=== PATIENT | female | born 1950 | race Caucasian/White ===

== ENCOUNTER 2016-11-06 07:00 | Emergency (ER) | payer OTHER ==
[~2016-11-06] VITALS: Ht 165.1 cm; Wt 88.0 kg
[~2016-11-06 07:00] MED LIST: ASPI81TA28 PO; ATV5X PO; CHOL100010 PO; COEN1CAP17 PO; CYAN10005 PO; FLNIN/ NAE; INSUINJ14 SC; INSUINJ4 SQ; KRIL1000 PO; LEVO100T7 PO; LPT40 PO; LSN5 PO; MAGN1CAP4 PO; METF-384 PO; METO25TA56 PO; PROB1TAB16 PO; ZTA10 PO
[2016-11-06 07:04] VITALS: TEMP 36.4; Ht 165.1 cm; Wt 88.0 kg
[2016-11-06 07:37] LABS: BASO % 1.2 %; BASO ABS # 0.07 K/uL (0-0.2); COMPLETE YES; HEMATOCRIT 38.4 % (37-47); IG% 0.3 %; LYMPH % 33.8 %; LYMPH ABS # 2.04 K/uL (1.2-3.4); MEAN CELL VOLUME 89.7 fL (80-100); MEAN CORPUSCULAR HEMOGLOBIN 30.6 pg (25-34); MEAN CORPUSCULAR HGB CONC 34.1 g/dl (32-36); MEAN PLATELET VOLUME 9.5 fL (7.4-10.4); MONO % 7.5 %; NEUT % 50.2 %; PLATELET COUNT 212 K/uL (130-400); RED BLOOD COUNT 4.28 M/uL (4.2-5.4); WHITE BLOOD COUNT 6.03 K/uL (4.8-10.8)
[2016-11-06 07:55] LABS: THYROID STIMULATING HORMONE 0.792 uIu/ml (0.300-4.500)
[2016-11-06 08:39] VITALS: BP 136/75; PULSE 61; O2SAT 93
--- NOTE | 2016-11-06 16:27 | EMERGENCY ROOM VISIT NOTE ---
History First contact with patient: 07:11 Chief Complaint: IRREGULAR HEARTBEAT Stated Complaint: HEART ARRYTHMIA Nursing Triage Summary: pt c/o in the evening feeling dizzy and thinks her heart beat is slow and then at night feels like her heart is beating fast then it stops. pt has been having hard time sleeping bc of these episodes, last night she states she had est 7 episodes last night. and states that she has been under a lot of stress no c/o chest pain History of Present Illness The patient is a 66 year old white female who presents to the Emergency Room with complaints of intermittent episodes of tachycardia. She states she had several these last night. She has had intermittent sensations of tachycardia over the past few weeks. She was initially given a Holter monitor. Final results are still pending. She is now using a Holter for 30 days. She notes occasional dizzy feeling. She does wear a Fit[employer] notes that her occasionally pulse runs high for a few seconds. She denies any chest pain. No nausea or vomiting. No shortness of breath. She does state that she is under stress and is wondering whether her symptoms are caused by anxiety. Her accompanies her today. She had blood work done 2 weeks ago by her PCP due to the symptoms. She states her magnesium was normal but does not know the results of any other testing. Review of Systems REVIEW OF SYSTEM: HEENT: No dizziness, visual problems, hearing loss, or tinnitus. There is no difficulty swallowing and no oral lesions are present. LYMPH: No adenopathy. PULMONARY: No cough, shortness of breath, sputum production or hemoptysis. CARDIOVASCULAR: No chest pain, shortness of breath or peripheral edema. GASTROINTESTINAL: No diarrhea, constipation, nausea, vomiting, or abdominal pain. GENITOURINARY: No dysuria, frequency, urgency or nocturia. NEUROLOGIC: No weakness, muscle tenderness, epilepsy or history of neurological problems. MUSCULOSKELETAL: No history of joint tenderness/swelling. Positive history of arthritis and arthralgias. SKIN: No rashes or lesions. PSYCHIATRIC: No history of depression or mental illness. ENDOCRINE: No history of thyroid disorders, or abnormal hair growth. 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 Social History Smoking Status: Never Smoker Smokeless Tobacco Use: No Alcohol Use: none Drug Use: none Marital Status: Housing Status: lives with family Occupation Status: employed Current/Historical Medications Scheduled Aspirin (Aspirin Ec), 81 MG PO DAILY Atorvastatin (Atorvastatin Calcium), 40 MG PO QPM Cholecalciferol (Vitamin D), 2,000 INTER.UNIT PO QAM Coenzyme Q10 (Ubidecarenone) (Co Q 10), 100 MG PO QAM Cyanocobalamin (Vitamin B-12), 5,000 MCG PO QAM Ezetimibe (Zetia), 10 MG PO QPM Insulin Aspart Penfill (Novolog Penfill), UNITS SC ACHS Insulin Glargine (Lantus Solostar Pen), 24 UNITS SQ QPM Krill Oil (Krill Oil), 1 CAP PO QAM Levothyroxine Sodium (Levothyroxine Sodium), 112 MCG PO DAILY Lisinopril (Lisinopril), 5 MG PO QAM Magnesium Oxide (Magnesium), 400 MG PO BID Metformin Hcl (Glucophage), 1,000 MG PO BID Metoprolol Tartrate (Lopressor) (Lopressor), 25 MG PO BID Probiotic Product (Probiotic), 1 TAB PO HS Scheduled PRN Fluticasone Propionate (Fluticasone Propionate), 2 SPRAYS DONNA QPM PRN for Nasal Congestion Lorazepam (Lorazepam), 0.5 MG PO HS PRN for Sleep Allergies Coded Allergies: Codeine (Verified Adverse Reaction, Unknown, TACHYCARIA, ANXIETY, SOB, 11/06) Dexamethasone (Verified Adverse Reaction, Unknown, low mag, 11/06/16) Oxycodone (Verified Adverse Reaction, Unknown, NAUSEA, 11/06/16) Physical Exam Vital Signs Date Time Temp Pulse Resp B/P Pulse Ox O2 Delivery O2 Flow Rate FiO2 11/06/16 08:39 61 136/75 93 11/06/16 07:17 67 11/06/16 07:04 36.4 68 18 159/79 99 Room Air Pain Rating (0-10): 0 Physical Exam Gen.: Well-developed, well-nourished, elderly white female, in no acute distress. Sitting on a bed. Alert and oriented. Somewhat anxious. Skin:Warm and dry with good turgor. No rashes or lesions. No ecchymosis or erythema. The patient is not diaphoretic. No abrasions. HEENT: Normocephalic atraumatic. Eyes PERRLA, EOMI. No conjunctiva or scleral injection. Ears TMs intact bilaterally with good light reflexes. No erythema or bulging. No hemotympanum. Canals are patent. Nares patent bilaterally without turbinate enlargement. No significant drainage. No epistaxis. Oropharynx without erythema or exudate. Uvula midline, oral mucosa moist. No lesions present. Heart: Heart RRR. No MGR. Peripheral pulses are 2+. Lungs: Lungs are clear to auscultation. No crackles rhonchi or wheezing. Good air movement. The patient is able to take a deep breath. Abdomen: Abdomen was inspected, auscultated, and palpated. Bowel sounds present x 4. Soft, nontender to palpation. No hepato-splenomegaly. No masses noted. No rebound. Musculoskeletal: Gross motor function of the upper and lower extremities is intact and unremarkable. Medical Decision & Procedures ER Provider Diagnostic Interpretation: EKG obtained today was reviewed with Dr. Diaz. It shows a normal sinus rhythm with a rate of 67. No acute ST or T-wave changes. Laboratory Results 11/06/16 07:17 Red Blood Count 4.28, Mean Corpuscular Volume 89.7, Mean Corpuscular Hemoglobin 30.6, Mean Corpuscular Hemoglobin Concent 34.1, Mean Platelet Volume 9.5, Neutrophils (%) (Auto) 50.2, Lymphocytes (%) (Auto) 33.8, Monocytes (%) (Auto) 7.5, Eosinophils (%) (Auto) 7.0, Basophils (%) (Auto) 1.2, Neutrophils # (Auto) 3.03, Lymphocytes # (Auto) 2.04, Monocytes # (Auto) 0.45, Eosinophils # (Auto) 0.42, Basophils # (Auto) 0.07 Test 11/06/16 07:17 White Blood Count 6.03 K/uL (4.8-10.8) Red Blood Count 4.28 M/uL (4.2-5.4) Hemoglobin 13.1 g/dL (12.0-16.0) Hematocrit 38.4 % (37-47) Mean Corpuscular Volume 89.7 fL (80-100) Mean Corpuscular Hemoglobin 30.6 pg (25-34) Mean Corpuscular Hemoglobin Concent 34.1 g/dl (32-36) Platelet Count 212 K/uL (130-400) Mean Platelet Volume 9.5 fL (7.4-10.4) Neutrophils (%) (Auto) 50.2 % Lymphocytes (%) (Auto) 33.8 % Monocytes (%) (Auto) 7.5 % Eosinophils (%) (Auto) 7.0 % Basophils (%) (Auto) 1.2 % Neutrophils # (Auto) 3.03 K/uL (1.4-6.5) Lymphocytes # (Auto) 2.04 K/uL (1.2-3.4) Monocytes # (Auto) 0.45 K/uL (0.11-0.59) Eosinophils # (Auto) 0.42 K/uL (0-0.5) Basophils # (Auto) 0.07 K/uL (0-0.2) RDW Standard Deviation 43.9 fL (36.4-46.3) RDW Coefficient of Variation 13.4 % (11.5-14.5) Immature Granulocyte % (Auto) 0.3 % Immature Granulocyte # (Auto) 0.02 K/uL (0.00-0.02) Thyroid Stimulating Hormone (TSH) 0.792 uIu/ml (0.300-4.500) Free Thyroxine 1.17 ng/dl (0.80-1.60) CBC and TSH/free T4 were obtained. They're unremarkable. ED Course Patient was educated regarding today's findings. Conservative care measures were discussed. Patient was placed on a monitor. EKG was obtained. Lab work was obtained. She was watched in the department for over an hour. The monitor was interrogated. She had no runs of tachycardia or abnormal rhythm. She remained stable. I did suggest that she find out the final results from her Holter monitor and given the 30 day monitor a chance to record any events. Symptoms may be related to stress. I did encourage some light exercise to assist with stress reduction. Medical Decision Possibility of anemia, electrolyte abnormality, thyroid abnormality, medication side effect, anxiety, and stress induced were considered. Impression Primary Impression: Tachycardia Departure Information Dispostion Home / Self-Care Condition GOOD Referrals Pamela Saravia DO (PCP) Forms HOME CARE DOCUMENTATION FORM, IMPORTANT VISIT INFORMATION Patient Instructions A Signature Page, My [facility] Additional Instructions Follow-up with your PCP this week as scheduled Wait for your Holter monitor results Increase physical exercise if possible Return to the ED for any acute changes or worsening of symptoms
== END 2016-11-06 09:11 | disposition home or self-care (01) ==
LOC: C.EDB 07:02
DX: R00.0 Tachycardia, unspecified (principal); R42 Dizziness and giddiness; I10 Essential (primary) hypertension; E11.9 Type 2 diabetes mellitus without complications; Z79.82 Long term (current) use of aspirin; Z79.4 Long term (current) use of insulin

== ENCOUNTER → 2016-11-10 | Outpatient (CLI) | payer OTHER ==
[2016-11-10 13:22] VITALS: BP 143/84; PULSE 71; Ht 166.4 cm
== END | disposition home or self-care (01) ==
LOC: C.NEUR 12:58
PROVIDERS: ATTEND Internal Medicine Pulmonary Disease
DX: G47.30 Sleep apnea, unspecified (principal); F41.9 Anxiety disorder, unspecified

== ENCOUNTER → 2016-12-09 | Outpatient (CLI) | payer OTHER ==
[2016-12-09 11:17] LABS: CHOLESTEROL/HDL RATIO 3.3
== END | disposition home or self-care (01) ==
LOC: C.LABBC 08:49
PROVIDERS: ATTEND Internal Medicine Cardiovascular Disease
DX: I10 Essential (primary) hypertension (principal); E78.00 Pure hypercholesterolemia, unspecified

== ENCOUNTER → 2017-01-27 | Outpatient (CLI) | payer OTHER ==
[2017-01-27 11:10] LABS: HEMATOCRIT 39.1 % (37-47); MEAN CELL VOLUME 88.5 fL (80-100); MEAN CORPUSCULAR HEMOGLOBIN 29.2 pg (25-34); MEAN PLATELET VOLUME 10.2 fL (7.4-10.4); PLATELET COUNT 200 K/uL (130-400); RED BLOOD COUNT 4.42 M/uL (4.2-5.4); WHITE BLOOD COUNT 5.46 K/uL (4.8-10.8)
[2017-01-27 11:37] LABS: ESTIMATED AVERAGE GLUCOSE 151 mg/dl; HA1C FLAG Normal (Normal)
[2017-01-27 11:47] LABS: BLOOD UREA NITROGEN 24 mg/dl (7-18); CREATININE 0.93 mg/dl (0.60-1.20); GLUCOSE 110 mg/dl (70-99)
[2017-01-27 11:48] LABS: ALT/SGPT 34 U/L (12-78); AST/SGOT 24 U/L (15-37); BUN/CREATININE RATIO 26.1 (10-20); CALCIUM 9.1 mg/dl (8.5-10.1); CARBON DIOXIDE 27 mmol/L (21-32); CHLORIDE 107 mmol/L (98-107); CHOLESTEROL 158 mg/dl (0-200); MAGNESIUM 2.1 mg/dl (1.8-2.4); POTASSIUM 4.2 mmol/L (3.5-5.1); SODIUM 142 mmol/L (136-145); TRIGLYCERIDES 151 mg/dl (0-150); VERY LOW DENSITY LIPOPROT CALC 30 mg/dl
[2017-01-27 11:54] LABS: RATIO 4.2 mcg/mg (0-30.0)
[2017-01-27 11:56] LABS: ALB/GLOB RATIO 1.4 (0.9-2); ALKALINE PHOSPHATASE 63 U/L (45-117); CHOLESTEROL/HDL RATIO 2.7; HDL CHOLESTEROL 59 mg/dl; LDL CHOLESTEROL CALCULATED 69 mg/dl
== END | disposition home or self-care (01) ==
LOC: C.LABBC 08:41
PROVIDERS: ATTEND Family Medicine
DX: E11.9 Type 2 diabetes mellitus without complications (principal); I10 Essential (primary) hypertension; E78.00 Pure hypercholesterolemia, unspecified; E55.9 Vitamin D deficiency, unspecified; E03.9 Hypothyroidism, unspecified; E61.2 Magnesium deficiency

== ENCOUNTER → 2017-08-11 | Outpatient (CLI) | payer OTHER ==
[2017-08-11 11:49] LABS: ESTIMATED AVERAGE GLUCOSE 143 mg/dl; HA1C FLAG Normal (Normal)
[2017-08-11 12:25] LABS: ALT/SGPT 32 U/L (12-78); AST/SGOT 17 U/L (15-37); BLOOD UREA NITROGEN 29 mg/dl (7-18); BUN/CREATININE RATIO 28.9 (10-20); CARBON DIOXIDE 26 mmol/L (21-32); CHLORIDE 106 mmol/L (98-107); GLUCOSE 101 mg/dl (70-99); HDL CHOLESTEROL 52 mg/dl; POTASSIUM 4.5 mmol/L (3.5-5.1); SODIUM 140 mmol/L (136-145)
[2017-08-11 12:26] LABS: CHOLESTEROL 145 mg/dl (0-200); CHOLESTEROL/HDL RATIO 2.8; LDL CHOLESTEROL CALCULATED 66 mg/dl; TRIGLYCERIDES 134 mg/dl (0-150); VERY LOW DENSITY LIPOPROT CALC 27 mg/dl
== END | disposition home or self-care (01) ==
LOC: C.LABBC 08:53
PROVIDERS: ATTEND Family Medicine
DX: E78.00 Pure hypercholesterolemia, unspecified (principal); E11.9 Type 2 diabetes mellitus without complications

== ENCOUNTER → 2017-09-25 | Outpatient (CLI) | payer OTHER ==
--- NOTE | 2017-09-25 15:13 | MAMMOGRAPHY REPORT ---
BILATERAL DIGITAL SCREENING MAMMOGRAM WITH CAD: 09/25/2017 CLINICAL HISTORY: Routine screening. Patient has no complaints. TECHNIQUE: Bilateral CC and MLO views were obtained. Current study was also evaluated with a Compute r Aided Detection (CAD) system. COMPARISON: Comparison is made to exams dated: 09/20/2016 mammogram, 09/17/2015 mammogram, 4 mammogram, 09/06/2013 mammogram, 09/05/2012 mammogram, and 09/05/2011 mammogram - [facility]. BREAST COMPOSITION: There are scattered areas of fibroglandular density in both breasts. FINDINGS: The parenchymal pattern is similar to prior mammograms. There are a few benign rim calcif ications in the breasts. No developing mass, architectural distortion or cluster of suspicious micro calcifications is seen. IMPRESSION: ACR BI-RADS CATEGORY 2: BENIGN There is no mammographic evidence of malignancy. A 1 year screening mammogram is recommended. The pa tient will receive written notification of the results. Approximately 10% of breast cancers are not detected with mammography. A negative mammographic report should not delay biopsy if a clinically suggestive mass is present. Merissa Rhodes M.D. ay/:09/25/2017 12:26:00 Bobcat Driver/Labor: Anahi RUIZ(Diego)(Sasha)(BD), [facility] letter sent: Normal 1/2 BI-RADS Code: ACR BI-RADS Category 2: Benign
== END | disposition home or self-care (01) ==
LOC: C.MAMM 10:38
PROVIDERS: ATTEND Family Medicine
DX: Z12.31 Encounter for screening mammogram for malignant neoplasm of breast (principal)

== ENCOUNTER → 2017-11-24 | Outpatient (CLI) | payer OTHER ==
[2017-11-24 11:19] LABS: HEMOGLOBIN A1C 6.9 % (4.5-5.6)
[2017-11-24 11:30] LABS: ALT/SGPT 35 U/L (12-78); BLOOD UREA NITROGEN 22 mg/dl (7-18); CARBON DIOXIDE 32 mmol/L (21-32); CREATININE 0.97 mg/dl (0.60-1.20); GLUCOSE 109 mg/dl (70-99); POTASSIUM 4.2 mmol/L (3.5-5.1); SODIUM 139 mmol/L (136-145)
[2017-11-24 11:41] LABS: CHOLESTEROL 158 mg/dl (0-200); LDL CHOLESTEROL CALCULATED 75 mg/dl
== END | disposition home or self-care (01) ==
LOC: C.LABBC 08:52
PROVIDERS: ATTEND Family Medicine
DX: E11.9 Type 2 diabetes mellitus without complications (principal); E03.9 Hypothyroidism, unspecified

== ENCOUNTER 2017-12-17 16:13 | Emergency (ER) | payer OTHER ==
[~2017-12-17] VITALS: Ht 165.1 cm; Wt 86.7 kg
[2017-12-17 16:16] VITALS: TEMP 36.8; Ht 165.1 cm; Wt 86.7 kg
[2017-12-17] MEDS ORDERED: ALBUT/IPRATROP 3MG/0.5MG NEB 3 ML VIAL INH STA (16:38)
[2017-12-17] MEDS ORDERED: SODIUM CHLORIDE 0.9% 1000ML 2,000 ML IV STA (16:38)
[2017-12-17] MEDS ORDERED: ONDANSETRON INJ 2 MG/ML 2 ML VIAL IV STA (16:38)
[2017-12-17] MEDS ORDERED: FAMOTIDINE 20MG/5ML IV PUSH IV STA (16:38)
--- NOTE | 2017-12-17 16:42 | EMERGENCY ROOM VISIT NOTE ---
History Report prepared by Kelly: Gemma Reese Under the Supervision of: Dr. Mathew Valle M.D. First contact with patient: 16:28 Chief Complaint: ABDOMINAL PAIN Stated Complaint: EPIGASTRIC PAIN Nursing Triage Summary: Pt reports itching and tearing to left eye. Epigastric pain since yesterday afternoon. "Strange sensation across my chest when I cough. I do have a hernia. I took 5 TUMS today and they didn't help. Last night I looked like I was 9 mos , I was so bloated." Denies n/v/d. History of Present Illness The patient is a 67 year old female who presents to the Emergency Room with complaints of intermittent abdominal pain that started yesterday afternoon. The patient rates her pain a 6/10 in severity. She notes she feels very bloated. She took 5 TUMS today but they did not help. She states she had body aches last . She notes her eyes are very watery and itchy. The patient states she is also experiencing congestion, cough, and a fever. The patient denies any chest pain, diarrhea, or urine symptoms. She notes she took Tylenol last night. She reports she had her gallbladder taken out many years ago. The patient does not take blood thinners. She is on medication for high blood pressure and diabetes. Source of History: patient Onset: yesterday afternoon Position: abdomen Symptom Intensity: 7/10 Timing: intermittent Associated Symptoms: + fevers, + cough, No chest pain, No diarrhea, No urinary symptoms Review of Systems See HPI for pertinent positives and negatives. A total of ten systems were reviewed and were otherwise negative. 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 Family History No significant family history Social History Smoking Status: Never Smoker Alcohol Use: none Drug Use: none Marital Status: Housing Status: lives with family Occupation Status: employed Current/Historical Medications Scheduled Aspirin (Aspirin Ec), 81 MG PO DAILY Atorvastatin (Lipitor), 40 MG PO QPM Cholecalciferol (Vitamin D), 2,000 INTER.UNIT PO QAM Coenzyme Q10 (Ubidecarenone) (Co Q 10), 100 MG PO QAM Cyanocobalamin (Vitamin B-12), 5,000 MCG PO QAM Ezetimibe (Zetia), 10 MG PO QPM Famotidine (Pepcid), 20 MG PO BID Insulin Aspart Penfill (Novolog Penfill), UNITS SC ACHS Insulin Glargine (Lantus Solostar Pen), 44 UNITS SQ QPM Krill Oil (Krill Oil), 1 CAP PO QAM Levothyroxine Sodium (Levothyroxine Sodium), 112 MCG PO DAILY Lisinopril (Lisinopril), 5 MG PO QAM Magnesium Oxide (Magnesium), 400 MG PO BID Metformin Hcl (Glucophage), 1,000 MG PO BID Metoprolol Tartrate (Lopressor) (Lopressor), 25 MG PO DAILY Ofloxacin (Oph) (Ocuflox Oph Soln), 1-2 DROPS OP BID Ondasetron Odt (Zofran Odt), 4 MG SL Q6H Probiotic Product (Probiotic), 1 TAB PO HS Scheduled PRN Lorazepam (Lorazepam), 0.5 MG PO HS PRN for Sleep Allergies Coded Allergies: Codeine (Verified Adverse Reaction, Unknown, TACHYCARIA, ANXIETY, SOB, ) Dexamethasone (Verified Adverse Reaction, Unknown, low mag, 12/17/17) Oxycodone (Verified Adverse Reaction, Unknown, NAUSEA, 12/17/17) Physical Exam Vital Signs Date Time Temp Pulse Resp B/P (MAP) Pulse Ox O2 Delivery O2 Flow Rate FiO2 12/17/17 19:59 78 18 145/75 98 12/17/17 17:22 79 14 141/82 95 Room Air 12/17/17 17:17 89 12/17/17 16:16 36.8 107 18 163/85 98 Room Air Physical Exam GENERAL: Awake, alert, uncomfortable appearing, in no distress HENT: Normocephalic, atraumatic. Oropharynx unremarkable. Dry mucus membranes. Boggy nasal turbulence. EYES: Normal conjunctiva. Sclera non-icteric. NECK: Supple. No nuchal rigidity. FROM. No JVD. RESPIRATORY: Clear to auscultation. CARDIAC: Regular rate, normal rhythm. Extremities warm and well perfused. Pulses equal. ABDOMEN: Generalized abdominal tenderness, no peritoneal signs. RECTAL: Deferred. MUSCULOSKELETAL: Chest examination reveals no tenderness. The back is symmetrical on inspection without obvious abnormality. There is no CVA tenderness to palpation. No joint edema. LOWER EXTREMITIES: Calves are equal size bilaterally and non-tender. No edema. No discoloration. NEURO: Normal sensorium. No sensory or motor deficits noted. SKIN: No rash or jaundice noted. Medical Decision & Procedures ER Provider Diagnostic Interpretation: Radiology results as stated below per my review and radiologist interpretation: CHEST ONE VIEW PORTABLE HISTORY: Generalized abdominal pain. COMPARISON: Chest 04/28/2016. FINDINGS: The lungs are clear. Cardiac silhouette is normal in size. No pleural effusions. No pneumothorax. IMPRESSION: No acute process. Electronically signed by: Noah Smith M.D. 12/17/2017 5:07 PM Dictated Date/Time: 12/17/2017 5:06 PM ABDOMEN AND PELVIS CT WITH IV CONTRAST CT DOSE: 879.10 mGy.cm HISTORY: periumbilical abd pain TECHNIQUE: Multiaxial CT images of the abdomen and pelvis were performed following the use of intravenous contrast. A dose lowering technique was utilized adhering to the principles of ALARA. COMPARISON STUDY: Abdomen and pelvis CT 11/13/2015. FINDINGS: Groundglass densities at the lung bases favor dependent change. No pneumoperitoneum. No pneumatosis. No suspicious lytic or blastic osseous lesions. The liver, spleen, adrenal glands, and kidneys are unremarkable. The gallbladder appears surgically absent. There is a 3 cm diverticulum at the third portion of the duodenum. Minimal fat stranding adjacent to the body of the pancreas. The pancreas enhances normally. No retroperitoneal lymphadenopathy. The uterus and bladder are unremarkable. Colonic diverticulosis. No bowel wall thickening or obstruction. The appendix is not identified with certainty. IMPRESSION: 1. There appears be minimal fat stranding surrounding the body of the pancreas. Recommend correlation with pancreatic enzymes to assess for acute pancreatitis. 2. No bowel wall thickening or obstruction. 3. Colonic diverticulosis. 4. The appendix is not identified with certainty. Electronically signed by: Noah Smith M.D. 12/17/2017 6:11 PM Dictated Date/Time: 12/17/2017 5:57 PM Laboratory Results 12/17/17 16:35 Red Blood Count 4.73, Mean Corpuscular Volume 88.6, Mean Corpuscular Hemoglobin 30.4, Mean Corpuscular Hemoglobin Concent 34.4, Mean Platelet Volume 9.6, Neutrophils (%) (Auto) 64.8, Lymphocytes (%) (Auto) 20.1, Monocytes (%) (Auto) 7.2, Eosinophils (%) (Auto) 7.3, Basophils (%) (Auto) 0.4, Neutrophils # (Auto) 6.11, Lymphocytes # (Auto) 1.90, Monocytes # (Auto) 0.68, Eosinophils # (Auto) 0.69, Basophils # (Auto) 0.04 12/17/17 16:35 Test 12/17/17 16:35 12/17/17 16:55 12/17/17 17:26 12/17/17 18:39 White Blood Count 9.44 K/uL (4.8-10.8) Red Blood Count 4.73 M/uL (4.2-5.4) Hemoglobin 14.4 g/dL (12.0-16.0) Hematocrit 41.9 % (37-47) Mean Corpuscular Volume 88.6 fL (80-100) Mean Corpuscular Hemoglobin 30.4 pg (25-34) Mean Corpuscular Hemoglobin Concent 34.4 g/dl (32-36) Platelet Count 229 K/uL (130-400) Mean Platelet Volume 9.6 fL (7.4-10.4) Neutrophils (%) (Auto) 64.8 % Lymphocytes (%) (Auto) 20.1 % Monocytes (%) (Auto) 7.2 % Eosinophils (%) (Auto) 7.3 % Basophils (%) (Auto) 0.4 % Neutrophils # (Auto) 6.11 K/uL (1.4-6.5) Lymphocytes # (Auto) 1.90 K/uL (1.2-3.4) Monocytes # (Auto) 0.68 K/uL (0.11-0.59) Eosinophils # (Auto) 0.69 K/uL (0-0.5) Basophils # (Auto) 0.04 K/uL (0-0.2) RDW Standard Deviation 44.1 fL (36.4-46.3) RDW Coefficient of Variation 13.5 % (11.5-14.5) Immature Granulocyte % (Auto) 0.2 % Immature Granulocyte # (Auto) 0.02 K/uL (0.00-0.02) Erythrocyte Sedimentation Rate 55 mm/hr (0-21) Anion Gap 12.0 mmol/L (3-11) Est Creatinine Clear Calc Drug Dose 50.6 ml/min Estimated GFR () 56.8 Estimated GFR (Non- 49.0 BUN/Creatinine Ratio 16.8 (10-20) Calcium Level 9.8 mg/dl (8.5-10.1) Total Bilirubin 0.4 mg/dl (0.2-1) Direct Bilirubin < 0.1 mg/dl (0-0.2) Aspartate Amino Transf (AST/SGOT) 13 U/L (15-37) Alanine Aminotransferase (ALT/SGPT) 28 U/L (12-78) Alkaline Phosphatase 87 U/L (45-117) Troponin I < 0.015 ng/ml (0-0.045) C-Reactive Protein 2.52 mg/dl (0-0.29) Total Protein 8.2 gm/dl (6.4-8.2) Albumin 3.8 gm/dl (3.4-5.0) Lipase 384 U/L (73-393) Lactic Acid Level 2.2 mmol/L (0.4-2.0) Influenza Type A Antigen Neg for Influ A (NEG) Influenza Type B Antigen Neg for Influ B (NEG) Bedside Lactic Acid Venous 1.27 mmol/L (0.90-1.70) Test 12/17/17 19:14 Urine Color YELLOW Urine Appearance CLEAR (CLEAR) Urine pH 6.5 (4.5-7.5) Urine Specific Elizabeth > 1.045 (1.000-1.030) Urine Protein NEG (NEG) Urine Glucose (UA) NEG (NEG) Urine Ketones NEG (NEG) Urine Occult Blood NEG (NEG) Urine Nitrite NEG (NEG) Urine Bilirubin NEG (NEG) Urine Urobilinogen NEG (NEG) Urine Leukocyte Esterase NEG (NEG) Laboratory results reviewed by me Medications Administered Medications (Trade) Dose Ordered Sig/Denise Route Start Time Stop Time Status Last Admin Dose Admin Sodium Chloride 2,000 ml @ 999 mls/hr Q2H1M STAT IV 12/17/17 16:38 12/17/17 18:38 DC 12/17/17 17:12 999 MLS/HR Sodium Chloride ([place] Nasal [facility]) 2 sprays NOW ONCE NA 12/17/17 16:45 12/17/17 16:46 DC 12/17/17 17:13 2 SPRAYS Albuterol/ Ipratropium (Duoneb) 3 ml NOW STAT INH 12/17/17 16:38 12/17/17 16:43 DC 12/17/17 17:13 3 ML Dexamethasone Sodium Phosphate (Dexamethasone Inj Pf) 10 mg NOW ONCE IV 12/17/17 16:45 12/17/17 16:46 DC 12/17/17 17:12 10 MG Famotidine (Pepcid 20mg Iv Push) 20 mg NOW STAT IV 12/17/17 16:38 12/17/17 16:43 DC 12/17/17 17:12 20 MG Ondansetron HCl (Zofran Inj) 4 mg NOW STAT IV 12/17/17 16:38 12/17/17 16:43 DC 12/17/17 17:12 4 MG Artificial Tears (Artificial Tears) 2 drops NOW STAT OPB 12/17/17 16:43 12/17/17 16:44 DC 12/17/17 17:13 2 DROPS Albuterol (Ventolin Hfa Inhaler) 2 puffs NOW ONCE INH 12/17/17 19:45 12/17/17 19:46 DC 12/17/17 20:00 2 PUFFS ECG Per My Interpretation Indication: abdominal pain Rate (beats per minute): 93 Rhythm: normal sinus Findings: LBBB (incomplete), no acute ischemic change, left axis deviation Change: no significant change ED Course 1628: The patient was evaluated in room C11B. A complete history and physical exam was performed. 1911: I reevaluated the patient. Discussed results and discharge instructions: She verbalized understanding and agreement. The patient is ready for discharge. Medical Decision I reviewed the patient's past medical history, medications, and the nursing notes as described above. Differential diagnosis: Etiologies such as appendicitis, diverticulitis, PUD, biliary pathology, UTI, pancreatitis, obstruction, mesenteric ischemia, aortic pathology, infections, inflammatory bowel disease, renal colic, viral illness, influenza, PNA, bronchitis, as well as others were entertained. The patient is a 67 y/o woman with pmhx of HTN, HLD, IDDM2 who presents to the emergency department with with flu-like sx including cough, congestion, nausea and abdominal bloating per HPI. On arrival the patient is in NAD, AF, HR 100s but otherwise VSS. The patient appears clinically dry. Mildly hoarse voice but no stridor or dysphagia. Mild epigastric discomfort. Labs WBC wnl, ESR 50s, CRP 2, Lactate 2.2. UA and flu screen negative. CXR negative. CT with ?stranding around pancreas but lipase wnl. Appendix not clearly identified however [facility] Patient feeling much improved after IVF , Dexamethasone (for laryngitis component), IV pepcid, zofran, Duonebs, saline nasal spray. Repeat lactate wnl. Patient feeling improved to go home. Sx most c/ w viral illness with gastritis and laryngitis components. Left eye with mild injection and tearing most c/w viral conjunctivitis however will give ofloxacin rx in case there is not improvement in the next few days. Findings and plan for follow-up reviewed with patient. Patient agreeable and d/c'd per discharge instructions. Medication Reconcilliation Current Medication List: was personally reviewed by me Blood Pressure Screening Patient's blood pressure: Elevated blood pressure Blood pressure disposition: Elevated BP felt to be situational Impression Primary Impression: Viral syndrome Additional Impressions: Laryngitis Gastritis Scribe Attestation The scribe's documentation has been prepared under my direction and personally reviewed by me in its entirety. I confirm that the note above accurately reflects all work, treatment, procedures, and medical decision making performed by me. Departure Information Dispostion Home / Self-Care Prescriptions Ofloxacin (Oph) (OCUFLOX OPH SOLN) 0.3 % Joey 1-2 DROPS OP BID for 7 Days, #1 BTL Prov: Mathew Valle M.D. 12/17/17 Ondasetron Odt (ZOFRAN ODT) 4 Mg Tab 4 MG SL Q6H for Nausea, #10 TAB Prov: Mathew Valle M.D. 12/17/17 Famotidine (PEPCID) 20 Mg Tab 20 MG PO BID for 10 Days, #20 TAB Prov: Mathew Valle M.D. 12/17/17 Referrals Jenni Osborne MD (PCP) Patient Instructions ED Conjunctivitis Nonspecific, ED Gastritis, ED Laryngitis, ED Viral Syndrome, My [facility] Additional Instructions Please follow up with your primary care physician in the next 1-3 days for re- evaluation. You likely have a viral illness with an associated laryngitis and gastritis. Otherwise, your exam, EKG, chest xray, lab results. and CT scan did not show signs of an emergent condition at this time. Acetaminophen or ibuprofen for pain and fevers as needed. Pepcid for acid reduction. Zofran as needed for nausea. Saline nasal spray and [id number] Mucinex to help thin and clear mucus as needed. Albuterol 2 puffs every 4 hours for the next 48 hours and then as needed thereafter. Drink plenty of fluids to ensure hydration. You may have a mild associated conjunctivitis that is most likely viral. Continue with cool/warm compresses and artificial tears. If no improvement you may begin Ofloxacin eye drops. Return to the emergency department for worsening symptoms as described in the accompanying instructions. Problem Qualifiers
[2017-12-17] MEDS ORDERED: ARTIFICIAL TEARS OP SOLN OPB STA (16:43)
[2017-12-17] MEDS ORDERED: SODIUM CHLORIDE 0.65% NA SOLN 45 ML (OCEAN) ONE (16:45)
[2017-12-17] MEDS ORDERED: DEXAMETHASONE **PF** INJ 10 MG/ML VIAL IV ONE (16:45)
[2017-12-17 16:48] LABS: BASO % 0.4 %; BASO ABS # 0.04 K/uL (0-0.2); EOS % 7.3 %; EOS ABS # 0.69 K/uL (0-0.5); HEMATOCRIT 41.9 % (37-47); HEMOGLOBIN 14.4 g/dL (12.0-16.0); IG# 0.02 K/uL (0.00-0.02); LYMPH % 20.1 %; MEAN CELL VOLUME 88.6 fL (80-100); MEAN CORPUSCULAR HEMOGLOBIN 30.4 pg (25-34); MEAN CORPUSCULAR HGB CONC 34.4 g/dl (32-36); MEAN PLATELET VOLUME 9.6 fL (7.4-10.4); MONO % 7.2 %; MONO ABS # 0.68 K/uL (0.11-0.59); NEUT % 64.8 %; NEUT ABS # 6.11 K/uL (1.4-6.5); PLATELET COUNT 229 K/uL (130-400); RED CELL DISTRIBUTION WIDTH CV 13.5 % (11.5-14.5); RED CELL DISTRIBUTION WIDTH SD 44.1 fL (36.4-46.3); WHITE BLOOD COUNT 9.44 K/uL (4.8-10.8)
[2017-12-17] MEDS ORDERED: OPTIRAY 320 IV PRN (17:00)
--- NOTE | 2017-12-17 17:08 | DIAGNOSTIC IMAGING REPORT ---
CHEST ONE VIEW PORTABLE HISTORY: Generalized abdominal pain. COMPARISON: Chest 04/28/2016. FINDINGS: The lungs are clear. Cardiac silhouette is normal in size. No pleural effusions. No pneumothorax. IMPRESSION: No acute process. Electronically signed by: Noah Smith M.D. 12/17/2017 5:07 PM Dictated Date/Time: 12/17/2017 5:06 PM
[2017-12-17 17:17] LABS: ALBUMIN 3.8 gm/dl (3.4-5.0); ALT/SGPT 28 U/L (12-78); BLOOD UREA NITROGEN 19 mg/dl (7-18); CALCIUM 9.8 mg/dl (8.5-10.1); CARBON DIOXIDE 26 mmol/L (21-32); CREATININE 1.14 mg/dl (0.60-1.20); GLUCOSE 183 mg/dl (70-99); LIPASE 384 U/L (73-393); POTASSIUM 4.1 mmol/L (3.5-5.1); SODIUM 140 mmol/L (136-145)
[2017-12-17 17:22] LABS: ALKALINE PHOSPHATASE 87 U/L (45-117); AST/SGOT 13 U/L (15-37); TOTAL PROTEIN 8.2 gm/dl (6.4-8.2)
[2017-12-17 18:06] LABS: INFLUENZA B ANTIGEN Neg for Influ B (NEG)
--- NOTE | 2017-12-17 18:12 | DIAGNOSTIC IMAGING REPORT ---
ABDOMEN AND PELVIS CT WITH IV CONTRAST CT DOSE: 879.10 mGy.cm HISTORY: periumbilical abd pain TECHNIQUE: Multiaxial CT images of the abdomen and pelvis were performed following the use of intravenous contrast. A dose lowering technique was utilized adhering to the principles of ALARA. COMPARISON STUDY: Abdomen and pelvis CT 11/13/2015. FINDINGS: Groundglass densities at the lung bases favor dependent change. No pneumoperitoneum. No pneumatosis. No suspicious lytic or blastic osseous lesions. The liver, spleen, adrenal glands, and kidneys are unremarkable. The gallbladder appears surgically absent. There is a 3 cm diverticulum at the third portion of the duodenum. Minimal fat stranding adjacent to the body of the pancreas. The pancreas enhances normally. No retroperitoneal lymphadenopathy. The uterus and bladder are unremarkable. Colonic diverticulosis. No bowel wall thickening or obstruction. The appendix is not identified with certainty. IMPRESSION: 1. There appears be minimal fat stranding surrounding the body of the pancreas. Recommend correlation with pancreatic enzymes to assess for acute pancreatitis. 2. No bowel wall thickening or obstruction. 3. Colonic diverticulosis. 4. The appendix is not identified with certainty. Electronically signed by: Noah Smith M.D. 12/17/2017 6:11 PM Dictated Date/Time: 12/17/2017 5:57 PM
[2017-12-17] MEDS ORDERED: ONDA4TAB10 SL (19:34)
[2017-12-17] MEDS ORDERED: FAMO20TA9 PO (19:34)
[2017-12-17] MEDS ORDERED: OFLO0.3S OP (19:38)
[2017-12-17] MEDS ORDERED: ALBUTEROL HFA 8 GM INHALER INH ONE (19:45)
[2017-12-17 19:59] VITALS: BP 145/75; PULSE 78; O2SAT 98
== END 2017-12-17 20:00 | disposition home or self-care (01) ==
LOC: C.EDB 16:13 → C.EDC 20:00
DX: B34.9 Viral infection, unspecified (principal); J04.0 Acute laryngitis; K29.70 Gastritis, unspecified, without bleeding; I10 Essential (primary) hypertension; E11.9 Type 2 diabetes mellitus without complications; I44.7 Left bundle-branch block, unspecified; H04.202 Unspecified epiphora, left side; Z79.4 Long term (current) use of insulin; Z79.84 Long term (current) use of oral hypoglycemic drugs; Z79.82 Long term (current) use of aspirin; Z88.5 Allergy status to narcotic agent; Z88.8 Allergy status to other drugs, medicaments and biological substances

== ENCOUNTER → 2018-02-17 | Outpatient (CLI) | payer OTHER ==
[~2018-02-17] MED LIST changes: -FLNIN/ NAE; +ONDA4TAB10 SL
[2018-02-17 11:23] LABS: ALT/SGPT 29 U/L (12-78); BLOOD UREA NITROGEN 20 mg/dl (7-18); CARBON DIOXIDE 29 mmol/L (21-32); CHOLESTEROL 175 mg/dl (0-200); CREATININE 0.98 mg/dl (0.60-1.20); GLUCOSE 80 mg/dl (70-99); POTASSIUM 4.1 mmol/L (3.5-5.1); SODIUM 141 mmol/L (136-145)
[2018-02-17 11:33] LABS: LDL CHOLESTEROL CALCULATED 81 mg/dl
[2018-02-17 11:34] LABS: HEMOGLOBIN A1C 6.9 % (4.5-5.6)
== END | disposition home or self-care (01) ==
LOC: C.LAB 09:29
PROVIDERS: ATTEND Family Medicine
DX: I10 Essential (primary) hypertension (principal); E78.00 Pure hypercholesterolemia, unspecified; E03.9 Hypothyroidism, unspecified

== ENCOUNTER → 2018-03-06 | Outpatient (CLI) | payer OTHER ==
[~2018-03-06] VITALS: Ht 166.4 cm; Wt 88.1 kg
[2018-03-06 13:37] VITALS: BP 121/72; PULSE 64; Ht 166.4 cm; Wt 88.1 kg
== END | disposition home or self-care (01) ==
LOC: C.NEUR 12:50
PROVIDERS: ATTEND Physician Assistant Medical
DX: G47.30 Sleep apnea, unspecified (principal); Z88.6 Allergy status to analgesic agent; Z88.8 Allergy status to other drugs, medicaments and biological substances